=== PATIENT | male | born 1995 | race Caucasian/White ===

== ENCOUNTER 2019-10-06 13:45 | Emergency (ER) | payer OTHER ==
[~2019-10-06] VITALS: Ht 182.9 cm; Wt 90.7 kg
[2019-10-06 14:06] LABS: URINE BILIRUBIN NEGATIVE (Negative); URINE BLOOD NEGATIVE (Negative); URINE CLARITY CLEAR; URINE COLOR YELLOW; URINE GLUCOSE-RANDOM* NEGATIVE (Negative); URINE KETONES NEGATIVE (Negative); URINE LEUKOCYTES-REFLEX NEGATIVE (Negative); URINE NITRITE-REFLEX NEGATIVE (Negative); URINE PROTEIN (DIPSTICK) NEGATIVE (Negative)
[2019-10-06 18:19] VITALS: BP 128/83
[2019-10-06] MEDS ORDERED: KEFLEX500 M1 PO (18:31)
== END 2019-10-06 18:19 | disposition home or self-care (01) ==
LOC: ER 13:45
PROVIDERS: Physician Assistant
DX: L73.9 Follicular disorder, unspecified (principal); L03.90 Cellulitis, unspecified; N50.89 Other specified disorders of the male genital organs; N49.2 Inflammatory disorders of scrotum; J45.909 Unspecified asthma, uncomplicated